=== PATIENT | male | born 1960 | race Two or more races ===

== ENCOUNTER 2017-06-01 18:29 | Emergency (ER) | payer MEDICAID ==
--- NOTE | 2017-06-01 18:42 | EDM.PDOC ---
ED HPI GENERAL MEDICAL PROBLEM - General Stated Complaint: FALL/HIT HEAD/COLLARBONE Time Seen by Provider: 06/01/17 18:36 - History of Present Illness INITIAL COMMENTS - FREE TEXT/NARRATIVE: HISTORY AND PHYSICAL: History of present illness: Patient is 57-year-old white male presents status post fall which injured his right clavicle/shoulder and struck his head he states he may have had brief loss of consciousness he denies neck pain denies chest or abdominal pain or trauma or other concern Review of systems: As per history of present illness and below otherwise all systems reviewed and negative. Past medical history: As per history of present illness and as reviewed below otherwise noncontributory. Surgical history: As per history of present illness and as reviewed below otherwise noncontributory. Social history: No reported history of drug or alcohol abuse. Family history: As per history of present illness and as reviewed below otherwise noncontributory. Physical exam: HEENT: Atraumatic, normocephalic, pupils reactive, negative for conjunctival pallor , mucous membranes moist, throat clear, neck supple, nontender, trachea midline. Lungs: Clear to auscultation, breath sounds equal bilaterally, chest nontender. Heart: S1S2, regular, negative for clicks, rubs, or JVD. Abdomen: Soft, nondistended, nontender. Negative for masses or hepatosplenomegaly. Negative for costovertebral tenderness. Pelvis: Stable nontender. Genitourinary: Deferred. Rectal: Deferred. Extremities: Tenderness to palpation of his right clavicle patient is guarding his clavicle somewhat and has limited range of motion of the shoulder secondary to pain vascular exams unremarkable Neuro: Awake, alert, oriented. Cranial nerves II through XII unremarkable. Cerebellum unremarkable. Motor and sensory unremarkable throughout. Exam nonfocal. Diagnostics: Tray right shoulder/collarbone CT brain Therapeutics: Sling right arm Impression: 1 observation status post fall #2 closed head injury #3 acute right shoulder/ clavicle injury Definitive disposition and diagnosis as appropriate pending reevaluation and review of above. - Related Data Allergies Allergy/AdvReac Type Severity Reaction Status Date / Time No Known Allergies Allergy Verified 04/25/15 10:53 Home Meds: Home Meds . [No Known Home Meds] 04/25/15 [History] Social & Family History - Tobacco Use Smoking Status *Q: Current Every Day Smoker Years of Tobacco use: 39 Packs/Tins Daily: 1 - Recreational Drug Use Recreational Drug Use: Yes Drug Use in Last 12 Months: No ED ROS GENERAL - Review of Systems Review Of Systems: ROS reveals no pertinent complaints other than HPI. ED EXAM, GENERAL - Physical Exam Exam: See Below (See dictation) Course - Orders/Labs/Meds Orders: Active Orders 24 hr Category Date Time Status Clavicle Rt [CR] Stat Exams 06/01/17 18:38 Ordered Head wo Cont [CT] Stat Exams 06/01/17 18:38 Ordered Shoulder Comp Rt [CR] Stat Exams 06/01/17 18:38 Ordered Departure - Departure Time of Disposition: 18:40 Disposition: Home, Self-Care 01 Condition: Good Clinical Impression: Head injury, Shoulder injury, Injury of right clavicle - Discharge Information Additional Instructions: The following information is given to patients seen in the emergency department who are being discharged to home. This information is to outline your options for follow-up care. We provide all patients seen in our emergency department with a follow-up referral. The need for follow-up, as well as the timing and circumstances, are variable depending upon the specifics of your emergency department visit. If you don't have a primary care physician on staff, we will provide you with a referral. We always advise you to contact your personal physician following an emergency department visit to inform them of the circumstance of the visit and for follow-up with them and/or the need for any referrals to a consulting specialist. The emergency department will also refer you to a specialist when appropriate. This referral assures that you have the opportunity for followup care with a specialist. All of these measure are taken in an effort to provide you with optimal care, which includes your followup. Under all circumstances we always encourage you to contact your private physician who remains a resource for coordinating your care. When calling for followup care, please make the office aware that this follow-up is from your recent emergency room visit. If for any reason you are refused follow-up, please contact the [facility] emergency department at and asked to speak to the emergency department charge nurse. [facility] Professional [address], [address] [place] [address] Sling as directed and follow-up right medical doctor/orthopedic clinic as discussed Tylenol as directed return as needed as discussed - My Orders Last 24 Hours: My Active Orders 06/01/17 18:38 Clavicle Rt [CR] Stat Head wo Cont [CT] Stat Shoulder Comp Rt [CR] Stat - Assessment/Plan Last 24 Hours: My Active Orders 06/01/17 18:38 Clavicle Rt [CR] Stat Head wo Cont [CT] Stat Shoulder Comp Rt [CR] Stat
[2017-06-01 18:44] VITALS: BP 105/79
[2017-06-01] MEDS ORDERED: Acetaminophen/HYDROcodone 325-5 MG Tab PO ONE (19:22)
--- NOTE | 2017-06-02 09:29 | CT ---
EXAM DATE: 06/01/17 PATIENT'S AGE: 57 Patient: ROBB JARRELL Facility: [place], [place] Site . Site : 1960 Study: CT Head [id number]/27/2017 6:59:22 PM Ordering Physician: Hortencia Lauren Final Report: INDICATION: Fall. LOC. TECHNIQUE: CT head without contrast. COMPARISON: None available FINDINGS: The ventricles and sulci demonstrate normal configuration and size for the patient`s age. There is no mass effect or midline shift. There is no loss of lemons-white differentiation. There is no evidence of an acute intracranial hemorrhage. There is a probable chronic left nasal bone deformity. Paranasal sinus mucosal thickening is noted, most pronounced in the left maxillary sinus. There is apparent minimal opacification of a few inferior right mastoid tip air cells. The visualized orbits are within normal limits. IMPRESSION: No evidence of an acute intracranial hemorrhage, mass effect or loss of lemons- white differentiation. Paranasal sinus disease. Dictated by Evan Martinez MD @ 06/01/2017 7:23:19 PM Dictated by: Evan Martinez MD @ 06/01/2017 19:23:34 (Electronic Signature) Report Signed by Proxy. STACI
--- NOTE | 2017-06-02 09:30 | CR ---
EXAM DATE: 06/01/17 PATIENT'S AGE: 57 Patient: ROBB JARRELL Facility: [place], [place] Site . Site : 1960 Study: XRay Shoulder Right clavicle [id number]/27/2017 7:09:03 PM Ordering Physician: Hortencia Lauren Final Report: INDICATION: Status post fall down stairs. TECHNIQUE: Clavicle radiographs 2 views COMPARISON: None FINDINGS: Displaced mid right clavicle fracture. With overlap of fracture fragments. Distal fracture fragment is displaced superiorly. Right lung apex clear. No pleural line indicate right apical pneumothorax. Mild degenerative changes of the AC joint with inferior spurring. IMPRESSION: 1. Oblique, displaced mid right clavicle fracture with significant overlap of fracture fragments. Dictated by Conrad Saravia MD @ 06/01/2017 7:30:57 PM Dictated by: Conrad Saravia MD @ 06/01/2017 19:31:01 (Electronic Signature) Report Signed by Proxy. STACI
--- NOTE | 2017-06-02 09:31 | CR ---
EXAM DATE: 06/01/17 PATIENT'S AGE: 57 Patient: ROBB JARRELL Facility: [place], [place] Site . Site : 1960 Study: XRay Shoulder Right [id number]/27/2017 7:09:24 PM Ordering Physician: Hortencia Lauren Final Report: INDICATION: Fall down stairs. TECHNIQUE: Shoulder radiographs 3 views COMPARISON: None FINDINGS: Oblique, displaced mid right clavicle fracture with overlap of fracture fragments. Right AC joint alignment preserved. No glenohumeral joint dislocation. Displaced lateral 5th and 6th rib fractures. No definite pneumothorax identified. IMPRESSION: 1. Displaced mid right clavicle fracture with overlap of fracture fragments. 2. Displaced lateral right 5th and 6th rib fractures. Dictated by Conrad Saravia MD @ 06/01/2017 7:34:54 PM Dictated by: Conrad Saravia MD @ 06/01/2017 19:34:58 (Electronic Signature) Report Signed by Proxy. STACI
== END 2017-06-01 20:11 | disposition home or self-care (01) ==
LOC: MW.ED 18:29
DX: S22.41XA Multiple fractures of ribs, right side, initial encounter for closed fracture (principal); S42.021A Displaced fracture of shaft of right clavicle, initial encounter for closed fracture; F17.210 Nicotine dependence, cigarettes, uncomplicated; W10.9XXA Fall (on) (from) unspecified stairs and steps, initial encounter
CPT/HCPCS: 70450; 73000; 73030; 99284; A4566; A9270; 99282

== ENCOUNTER 2017-07-02 18:04 | Emergency (ER) | payer MEDICAID ==
[2017-07-02] MEDS ORDERED: Nitroglycerin 0.4 MG Tab.SL SL PRN (18:12)
[2017-07-02] MEDS ORDERED: Aspirin 81 MG Tab.Chew PO ONE (18:12)
--- NOTE | 2017-07-02 18:23 | EDM.PDOC ---
ED HPI GENERAL MEDICAL PROBLEM - General Chief Complaint: Chest Pain Stated Complaint: CHEST PAIN Time Seen by Provider: 07/02/17 18:11 Source of Information: Reports: Patient History Limitations: Reports: No Limitations - History of Present Illness INITIAL COMMENTS - FREE TEXT/NARRATIVE: HISTORY AND PHYSICAL: History of present illness: Patient is a 57-year-old male who resents to the emergency room with midsternal chest pain. Patient he woke up with midsternal chest pain that lasted several hours. She did take a nap this afternoon and the pain had gone away. Tonight around 5:00 the chest pain had returned. History of hypertension. He states he has never been placed on antihypertensive as he has been told that he "just needs to quit smoking". Recently quit smoking approximately one week ago. Review of systems: As per history of present illness and below otherwise all systems reviewed and negative. Past medical history: As per history of present illness and as reviewed below otherwise noncontributory. Surgical history: As per history of present illness and as reviewed below otherwise noncontributory. Social history: No reported history of drug or alcohol abuse. Family history: As per history of present illness and as reviewed below otherwise noncontributory. Physical exam: General: Nontoxic appearing 57-year-old male. Alert and oriented. Nontoxic appearing and in no acute distress. HEENT: Atraumatic, normocephalic, pupils reactive, negative for conjunctival pallor or scleral icterus, mucous membranes moist, throat clear, neck supple, nontender, trachea midline. Lungs: Clear to auscultation, breath sounds equal bilaterally, chest nontender. Heart: S1S2, regular, negative for clicks, rubs, or JVD. Abdomen: Soft, nondistended, nontender. Negative for masses or hepatosplenomegaly. Negative for costovertebral tenderness. Pelvis: Stable nontender. Genitourinary: Deferred. Rectal: Deferred. Extremities: Atraumatic, negative for cords or calf pain. Neurovascular unremarkable. Neuro: Awake, alert, oriented. Cranial nerves II through XII unremarkable. Cerebellum unremarkable. Motor and sensory unremarkable throughout. Exam nonfocal. Patient states that he used to drink a 6 pack per day of beer. Reports his last alcoholic drink was on June 05, 2017. Recently quit smoking. Has been using the NicoDerm CQ topical patch for the last week. Does have a prescription for Chantix, but has not started this medication yet. Has been seeing BOB Arboleda at the Orthopedic clinic for a clavicle and rib fracture in 05/2017. Is taking Quinton for pain management. Patient is pain free. Lab results are within normal limits. EKG shows no significant findings. Chest x-ray shows no acute findings, does visualize the right midshaft clavicular fracture from previous. I did offer the patient admission for observation status. He states he feels comfortable going home, declines admission. Believes his pain is related to not having his Quinton yet today. Risks were discussed. Patient voices understanding. He reports he will call an ambulance if symptoms worsen or new symptoms arise. Diagnostics: CBC, CMP, troponin, EKG, chest x-ray Therapeutics: Nitroglycerin, aspirin Impression: #1 Chest pain Plan: 1. Please start a baby aspirin daily. 2. Follow-up with Dr. Brunson next week for further evaluation. Would like you evaluated for your high blood pressure reading. 3. Declined admission today. As we discussed, if you have returning chest pain or worsening/new symptoms - call ambulance and return to the ED Definitive disposition and diagnosis as appropriate pending reevaluation and review of above. Onset: Today Duration: Day(s): chest pain Pain Score (Numeric/FACES): 2 - Related Data Allergies Allergy/AdvReac Type Severity Reaction Status Date / Time No Known Allergies Allergy Verified 07/02/17 18:21 Home Meds: Home Meds Hydrocodone/Acetaminophen [Hydrocodon-Acetaminophen 5-325] 1 each PO ASDIRECTED PRN 07/02/17 [History] Past Medical History - Past Surgical History Musculoskeletal Surgical History: Reports: Other (See Below) Other Musculoskeletal Surgeries/Procedures:: left wrist surgeries Social & Family History - Family History Family Medical History: Noncontributory - Tobacco Use Smoking Status *Q: Current Every Day Smoker Years of Tobacco use: 45 Packs/Tins Daily: 1 - Alcohol Use Days Per Week of Alcohol Use: 7 Number of Drinks Per Day: 2 Total Drinks Per Week: 14 - Recreational Drug Use Recreational Drug Use: No Drug Use in Last 12 Months: No ED ROS GENERAL - Review of Systems Review Of Systems: ROS reveals no pertinent complaints other than HPI. ED EXAM, GENERAL - Physical Exam Exam: See Below (See dictation) Course - Vital Signs Last Recorded V/S: Last Vital Signs Temp 99.4 F 07/02/17 18:22 Pulse 84 07/02/17 19:28 Resp 14 07/02/17 19:28 BP 130/90 07/02/17 19:28 Pulse Ox 96 07/02/17 19:28 - Orders/Labs/Meds Orders: Active Orders 24 hr Category Date Time Status EKG Documentation Completion [RC] STAT Care 07/02/17 18:12 Active Chest 1V Frontal [CR] Stat Exams 07/02/17 18:12 Taken Nitroglycerin [Nitrostat] Med 07/02/17 18:12 Active 0.4 mg SL Q5M PRN Medication Orders Nitroglycerin (Nitrostat) 0.4 mg SL Q5M PRN PRN Reason: Chest Pain Last Admin: 07/02/17 18:42 Dose: 0.4 mg Labs: Laboratory Tests 07/02/17 07/02/17 07/02/17 Range/Units 18:27 18:27 18:44 WBC 7.26 (4.0-11.0) K/uL RBC 4.57 (4.50-5.90) M/uL Hgb 16.0 (13.0-17.0) g/dL Hct 45.1 (38.0-50.0) % MCV 98.7 H (80.0-98.0) fL MCH 35.0 H (27.0-32.0) pg MCHC 35.5 (31.0-37.0) g/dL RDW Std Deviation 43.5 (28.0-62.0) fl RDW Coeff of Shikha 12 (11.0-15.0) % Plt Count 172 (150-400) K/uL MPV 10.20 (7.40-12.00) fL Neut % (Auto) 60.6 (48.0-80.0) % Lymph % (Auto) 26.7 (16.0-40.0) % [place] % (Auto) 11.7 (0.0-15.0) % Eos % (Auto) 0.7 (0.0-7.0) % Baso % (Auto) 0.3 (0.0-1.5) % Neut # (Auto) 4.4 (1.4-5.7) K/uL Lymph # (Auto) 1.9 (0.6-2.4) K/uL [place] # (Auto) 0.9 H (0.0-0.8) K/uL Eos # (Auto) 0.1 (0.0-0.7) K/uL Baso # (Auto) 0.0 (0.0-0.1) K/uL Nucleated RBC % 0.0 /100WBC Nucleated RBCs # 0 K/uL Sodium 140 (136-146) mmol/L Potassium 4.1 (3.5-5.1) mmol/L Chloride 109 (98-110) mmol/L Carbon Dioxide 22 (21-31) mmol/L BUN 8 (6.0-23.0) mg/dL Creatinine 0.9 (0.6-1.5) mg/dL Est Cr Clr Drug Dosing 86.56 mL/min Estimated GFR (MDRD) > 60.0 ml/min Glucose 100 (60-110) mg/dL Calcium 9.2 (8.8-10.8) mg/dL Total Bilirubin 0.8 (0.1-1.5) mg/dL AST 67 H (5-40) IU/L ALT 89 H (8-54) IU/L Alkaline Phosphatase 93 (40-150) Troponin I < 0.10 (0.0-0.29) NG/ML Total Protein 7.5 (6.0-8.0) g/dL Albumin 4.0 (3.5-5.0) g/dL Globulin 3.5 (2.0-3.5) g/dL Albumin/Globulin Ratio 1.1 L (1.3-2.8) Urine Color YELLOW Urine Appearance CLEAR Urine pH 7.0 (5.0-8.0) Ur Specific [place] <= 1.005 (1.001-1.035) Urine Protein NEGATIVE (NEGATIVE) mg/dL Urine Glucose (UA) NEGATIVE (NEGATIVE) mg/dL Urine Ketones NEGATIVE (NEGATIVE) mg/dL Urine Occult Blood NEGATIVE (NEGATIVE) Urine Nitrite NEGATIVE (NEGATIVE) Urine Bilirubin NEGATIVE (NEGATIVE) Urine Urobilinogen 0.2 (<2.0) EU/dL Ur Leukocyte Esterase NEGATIVE (NEGATIVE) Urine RBC 0-1 (0-2/HPF) Urine WBC 0-1 (0-5/HPF) Ur Epithelial Cells RARE (NONE-FEW) Urine Bacteria RARE (NEGATIVE) Urine Mucus RARE (NONE-MOD) Meds: Medications Generic Name Dose Route Start Last Admin Trade Name Freq PRN Reason Stop Dose Admin Nitroglycerin 0.4 mg 07/02/17 18:12 07/02/17 18:42 Nitrostat SL 0.4 mg Q5M PRN Administration Chest Pain Discontinued Medications Generic Name Dose Route Start Last Admin Trade Name Freq PRN Reason Stop Dose Admin Aspirin 324 mg 07/02/17 18:12 07/02/17 18:41 Aspirin PO 07/02/17 18:13 324 mg ONETIME ONE Administration Departure - Departure Time of Disposition: 19:49 Disposition: Home, Self-Care 01 Clinical Impression: Chest pain Qualifiers: Chest pain type: unspecified Qualified Code(s): R07.9 - Chest pain, unspecified Forms: ED Department Discharge Additional Instructions: My general discharge The following information is given to patients seen in the emergency department who are being discharged to home. This information is to outline your options for follow-up care. We provide all patients seen in our emergency department with a follow-up referral. The need for follow-up, as well as the timing and circumstances, are variable depending upon the specifics of your emergency department visit. If you don't have a primary care physician on staff, we will provide you with a referral. We always advise you to contact your personal physician following an emergency department visit to inform them of the circumstance of the visit and for follow-up with them and/or the need for any referrals to a consulting specialist. The emergency department will also refer you to a specialist when appropriate. This referral assures that you have the opportunity for follow-up care with a specialist. All of these measure are taken in an effort to provide you with optimal care, which includes your follow-up. Under all circumstances we always encourage you to contact your private physician who remains a resource for coordinating your care. When calling for follow-up care, please make the office aware that this follow-up is from your recent emergency room visit. If for any reason you are refused follow-up, please contact the [facility] Emergency Department at and asked to speak to the emergency department charge nurse. [facility] [address] [place] [id number] 1. Please start a baby aspirin daily (This is heart protective). Stop smoking. 2. Follow-up with Dr. Brunson next week for further evaluation. Would like you evaluated for your high blood pressure reading. 3. Declined admission today. As we discussed, if you have returning chest pain or worsening/new symptoms - call ambulance and return to the ED - My Orders Last 24 Hours: My Active Orders 07/02/17 18:12 EKG Documentation Completion [RC] STAT Chest 1V Frontal [CR] Stat Nitroglycerin [Nitrostat] 0.4 mg SL Q5M PRN - Assessment/Plan Last 24 Hours: My Active Orders 07/02/17 18:12 EKG Documentation Completion [RC] STAT Chest 1V Frontal [CR] Stat Nitroglycerin [Nitrostat] 0.4 mg SL Q5M PRN
[2017-07-02 19:19] LABS: CHLORIDE,CL 109 mmol/L (98-110); SODIUM,NA 140 mmol/L (136-146)
[2017-07-02 20:11] VITALS: BP 131/96
--- NOTE | 2017-07-04 15:34 | CR ---
EXAM DATE: 07/02/17 PATIENT'S AGE: 57 Patient: ROBB JARRELL Facility: [place], [place] Site . Site : 1960 Study: XRay Chest [id number]/27/2018 6:53:19 PM Ordering Physician: Doctor Aldrich Final Report: INDICATIONS: Chest pain starting earlier today. Broke right clavicle and ribs on 06/27/2017. TECHNIQUE: Chest 1 portable view. COMPARISON: Right clavicle same day. FINDINGS: No pneumothorax, pleural effusion or airspace consolidation. Cardiac and mediastinal contours are within normal limits. Upper abdomen as imaged is unremarkable. Right midshaft clavicle fracture. Irregularity of right ribs, likely involving ribs 3 through 6, however, this is suboptimally visualized. IMPRESSION: No evidence of acute cardiopulmonary disease. Right clavicle fracture and multiple right rib fractures, likely involving ribs 3 through 6. However, please note that the rib fractures are suboptimally evaluated. Dictated by Anastacio Sebastian MD @ 07/02/2017 7:18:41 PM Dictated by: Anastacio Sebastian MD @ 07/02/2017 19:18:56 (Electronic Signature) Report Signed by Proxy. [facility]ITAL[facility]riel
== END 2017-07-02 20:10 | disposition home or self-care (01) ==
LOC: MW.ED 18:04
DX: R07.9 Chest pain, unspecified (principal); F17.210 Nicotine dependence, cigarettes, uncomplicated
CPT/HCPCS: 36415; 71045; 80053; 81001; 84484; 85025; 93005; 99285; A9270

== ENCOUNTER 2019-11-20 06:07 | Emergency (ER) | payer SELFPAY ==
[2019-11-20 06:29] VITALS: BP 140/91; PULSE 87
--- NOTE | 2019-11-20 06:40 | EDM.PDOC ---
ED HPI GENERAL MEDICAL PROBLEM - General Chief Complaint: Bite:Animal, Insect Stated Complaint: PT SPOKE TO NURSE Time Seen by Provider: 11/20/19 06:34 Source of Information: Reports: Patient History Limitations: Reports: No Limitations - History of Present Illness INITIAL COMMENTS - FREE TEXT/NARRATIVE: HISTORY AND PHYSICAL: History of present illness: This is a 59-year-old gentleman with a history significant for hepatitis C who comes to the ER today secondary to irritation and bumps noted in the webspace between his second and third digits of his right hand. Patient reports that he was concerned that this might be a bite. Patient reports that today 1 of his housemates woke up and found a bat in his room. Patient reports that he was asleep when this happened and that the bat was not in the same bedroom that he was in. Patient presents the ER today for evaluation to make sure that he does not have a bat bite to his hand at the site of irritation. Patient reports that he had that irritation for approximately 2 to 3 days now. 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 Patient present the area is itching and irritated. Patient denies any other symptomatology. Patient has any recent fevers, shakes, chills, nausea, vomiting, diarrhea, dysuria, frequency, urgency, chest pain, shortness of breath. Patient's past medical history significant hepatitis C. Patient has no known drug allergies. 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 Review of systems: As per history of present illness and below otherwise all systems reviewed and negative. Past medical history: As per history of present illness and as reviewed below otherwise noncontributory. Surgical history: As per history of present illness and as reviewed below otherwise noncontributory. Social history: No reported history of drug or alcohol abuse. Family history: As per history of present illness and as reviewed below otherwise noncontributory. Physical exam: Constitutional: Patient is oriented to person, place, and time. Appears well- developed and well-nourished. No distress. HEENT: Moist mucous membranes Head: Normocephalic and atraumatic Eyes: Right eye exhibits no discharge. Left eye exhibits no discharge. No scleral icterus Neck: Normal range of motion. No tracheal deviation present. Cardiovascular: Normal rate and regular rhythm. Pulmonary: Effort normal, no respiratory distress. Abdominal: No distention Musculoskeletal: Normal range of motion Neurologic: Alert and oriented to person, place and time. Skin: [place], warm and dry. Psychiatric: Normal mood and affect. Behavior is normal. Judgment and thought content normal. Nursing note and vital signs have been reviewed Patient's ER physical exam is significant for 3 small papular areas in the webspace tween his second and third digit that appear to be consistent with a focal contact dermatitis. Impression: Plan Patient's presentation appears to be consistent with contact dermatitis. I have recommended that the patient get [id number] hydrocortisone cream and apply it twice a day. Patient reports that the rash is been there for approximately 3 days now and the irritation has almost completely resolved. I have had an in length conversation with the patient regarding recommendations of rabies prophylaxis if a bat is found within his home when he wakes up. I have recommended that the patient go ahead and get rabies prophylaxis however the patient at this time is declining prophylaxis with rabies immunoglobulin and vaccine. Patient reports that his door to his bedroom is always closed and his window has a screen and does not believe that there was a bat in his room while he was sleeping. I have recommended to the patient still that rabies vaccination would still be indicated per CDC recommendations and he is declining. Patient said that he will think about it and if he changes his mind he will return to the ER. Reassessment at the time of disposition demonstrates that the patient is in no acute distress. The patient has remained stable throughout the entire ED visit and is without objective evidence for acute process requiring urgent intervention or hospitalization. The patient is stable for discharge, counseling is provided as documented above, discussed symptomatic treatment and specific conditions for return. I have spoken with the patient/caregive and discussed todays findings, in addition to providing specific details for the plan of care. Questions are answered and there is agreement with the plan. - Related Data Allergies Allergy/AdvReac Type Severity Reaction Status Date / Time No Known Allergies Allergy Verified 11/20/19 06:32 Home Meds: Home Meds Non-Formulary Medication [NF Drug] 11/20/19 [History] Spironolactone [Aldactone] 1 tab PO DAILY 11/20/19 [History] Past Medical History Cardiovascular History: Reports: Hypertension - Past Surgical History Musculoskeletal Surgical History: Reports: Other (See Below) Other Musculoskeletal Surgeries/Procedures:: left wrist surgeries Social & Family History - Family History Family Medical History: Noncontributory - Caffeine Use Caffeine Use: Reports: Coffee ED ROS GENERAL - Review of Systems Review Of Systems: Comprehensive ROS is negative, except as noted in HPI. ED EXAM, ANIMAL BITE - Physical Exam Exam: See Below Exam Limited By: No Limitations Course - Vital Signs Last Recorded V/S: Last Vital Signs Temp 97.7 F 11/20/19 06:25 Pulse 87 11/20/19 06:25 Resp 18 11/20/19 06:25 BP 140/91 H 11/20/19 06:25 Pulse Ox 99 11/20/19 06:25 Departure - Departure Time of Disposition: 06:40 Disposition: Home, Self-Care 01 Condition: Good Clinical Impression: Contact dermatitis, Exposure to bat without known bite - Discharge Information *PRESCRIPTION DRUG MONITORING PROGRAM REVIEWED*: Not Applicable *COPY OF PRESCRIPTION DRUG MONITORING REPORT IN PATIENT JF: Not Applicable Instructions: Contact Dermatitis, [id number], Rabies Referrals: Brook Brunson MD [Primary Care Provider] - Additional Instructions: You were seen in the ER today secondary to the rash between your fingers. The rash between your fingers appears to be highly consistent with a contact dermatitis which likely is from environmental contact. You can utilize hydrocortisone cream which is [id number] 2-3 times a day to the area to help with symptoms. As we discussed, whenever there is a exposure to bat, the CDC recommends rabies prophylaxis. Although it is unlikely that you have contracted rabies it is still a possibility. If you change your mind about wanting rabies vaccine and prophylaxis please return to the ED. The following information is given to patients seen in the emergency department who are being discharged to home. This information is to outline your options for follow-up care. We provide all patients seen in our emergency department with a follow-up referral. The need for follow-up, as well as the timing and circumstances, are variable depending upon the specifics of your emergency department visit. If you don't have a primary care physician on staff, we will provide you with a referral. We always advise you to contact your personal physician following an emergency department visit to inform them of the circumstance of the visit and for follow-up with them and/or the need for any referrals to a consulting specialist. The emergency department will also refer you to a specialist when appropriate. This referral assures that you have the opportunity for follow-up care with a specialist. All of these measure are taken in an effort to provide you with optimal care, which includes your follow-up. Under all circumstances we always encourage you to contact your private physician who remains a resource for coordinating your care. When calling for follow-up care, please make the office aware that this follow-up is from your recent emergency room visit. If for any reason you are refused follow-up, please contact the [facility] Emergency Department at and asked to speak to the emergency department charge nurse. Sepsis Event Note (ED) - Evaluation Sepsis Screening Result: No Definite Risk - Focused Exam Vital Signs: Vital Signs Temp Pulse Resp BP Pulse Ox 11/20/19 06:25 97.7 F 87 18 140/91 H 99
== END 2019-11-20 07:01 | disposition home or self-care (01) ==
LOC: MW.ED 06:07
DX: L25.9 Unspecified contact dermatitis, unspecified cause (principal); I10 Essential (primary) hypertension; Z79.899 Other long term (current) drug therapy
CPT/HCPCS: 99282

== ENCOUNTER 2021-07-21 04:00 | Emergency (ER) | payer MEDICAID, OTHER ==
[2021-07-21] MEDS ORDERED: Sodium Chloride 0.9% 10 ML Syringe FLUSH PRN (04:31)
[2021-07-21] MEDS ORDERED: fentaNYL 50 MCG/ML SDV IVPUSH ONE (04:31)
[2021-07-21] MEDS ORDERED: Ondansetron 4 MG/2 ML SDV IVPUSH ONE (04:31)
[2021-07-21] MEDS ORDERED: Sodium Chloride 0.9% 2.5 ML Syringe FLUSH PRN (04:31)
[2021-07-21] MEDS ORDERED: Sodium Chloride 0.9% 1,000 ML IV ONE (04:31)
[2021-07-21 05:20] LABS: BLOOD UREA NITROGEN,BUN 11 mg/dL (7.0-18.0); CARBON DIOXIDE,CO2 24.1 mmol/L (21.0-32.0); CHLORIDE,CL 103 mmol/L (98-107); GLUCOSE RANDOM 118 mg/dL (74-106); POTASSIUM,K 3.7 mmol/L (3.5-5.1); SODIUM,NA 138 mmol/L (136-148)
[2021-07-21] MEDS ORDERED: Iopamidol 755 MG/ML 500 ML Multipack Bottle IVPUSH STA (05:47)
[2021-07-21 07:42] VITALS: BP 140/91; PULSE 77
== END 2021-07-21 07:28 | disposition home or self-care (01) ==
LOC: MW.ED 04:00
DX: K42.9 Umbilical hernia without obstruction or gangrene (principal); I10 Essential (primary) hypertension; Z72.0 Tobacco use
CPT/HCPCS: 36415; 74177; 74177-26; 80053; 81003; 85025; 96374; 96375; 99284-25; J2405; J3010; J7030; Q9967

== ENCOUNTER 2022-01-15 16:02 | Inpatient (IN) | payer OTHER ==
[2022-01-15] MEDS ORDERED: Sodium Chloride 0.9% 1,000 ML IV ONE ×2 (16:23→16:27)
[2022-01-15] MEDS ORDERED: Sodium Chloride 0.9% 2.5 ML Syringe FLUSH PRN (16:23)
[2022-01-15] MEDS ORDERED: Sodium Chloride 0.9% 10 ML Syringe FLUSH PRN (16:23)
[2022-01-15] MEDS ORDERED: Ibuprofen 600 MG Tab PO ONE ×2 (16:27)
[2022-01-15] MEDS ORDERED: Loperamide 2 MG Cap PO STA (16:28)
[2022-01-15 16:47] LABS: BLOOD UREA NITROGEN,BUN 30 mg/dL (7.0-18.0); CARBON DIOXIDE,CO2 17.2 mmol/L (21.0-32.0); CHLORIDE,CL 98 mmol/L (98-107); ESTIMATED GFR 37 mL/min (>60); GLUCOSE RANDOM 162 mg/dL (74-106); POTASSIUM,K 3.6 mmol/L (3.5-5.1); SODIUM,NA 129 mmol/L (136-148)
[2022-01-15] MEDS ORDERED: Piperacillin/Tazobactam 4.5 GM in Sodium Chloride 0.9% 100 ML IV ONE ×2 (19:44→19:49)
[2022-01-15] MEDS ORDERED: Lactated Ringers 1,000 ML IV STA (20:53)
[2022-01-15 20:58] LABS: CARBON DIOXIDE,CO2 20.4 mmol/L (21.0-32.0); POTASSIUM,K 3.6 mmol/L (3.5-5.1)
[2022-01-16] MEDS ORDERED: Ondansetron 4 MG/2 ML SDV IVPUSH PRN (01:42)
[2022-01-16] MEDS: Piperacillin/Tazobactam 3.375 GM in Sodium Chloride 0.9% 50 ML IV SCH ×4 (02:54→21:11)
[2022-01-16] MEDS: Heparin Sodium 5,000 Units/ML Vial SUBCUT SCH ×3 (06:17→21:11)
[2022-01-16] MEDS: Sodium Chloride 0.9% 1,000 ML IV SCH ×3 (06:23→17:28)
[2022-01-16 07:19] LABS: CARBON DIOXIDE,CO2 20.4 mmol/L (21.0-32.0); POTASSIUM,K 3.5 mmol/L (3.5-5.1)
[2022-01-16] MEDS ORDERED: Sodium Chloride 0.9% 1,000 ML IV ONE (09:31)
[2022-01-16] MEDS: Acetaminophen 325 MG Tab PO PRN ×2 (13:33→21:12)
[2022-01-17] MEDS: Sodium Chloride 0.9% 1,000 ML IV SCH ×4 (00:35→23:38)
[2022-01-17] MEDS: Piperacillin/Tazobactam 3.375 GM in Sodium Chloride 0.9% 50 ML IV SCH ×4 (01:20→20:50)
[2022-01-17] MEDS: Heparin Sodium 5,000 Units/ML Vial SUBCUT SCH ×3 (05:12→20:59)
[2022-01-17 06:38] LABS: CARBON DIOXIDE,CO2 20.8 mmol/L (21.0-32.0); POTASSIUM,K 4.1 mmol/L (3.5-5.1)
[2022-01-17] MEDS: Melatonin 3 MG Tab PO PRN (23:12)
[2022-01-18] MEDS: Piperacillin/Tazobactam 3.375 GM in Sodium Chloride 0.9% 50 ML IV SCH ×4 (02:08→21:22)
[2022-01-18] MEDS: Heparin Sodium 5,000 Units/ML Vial SUBCUT SCH ×3 (06:14→21:22)
[2022-01-18 07:03] LABS: CARBON DIOXIDE,CO2 17.2 mmol/L (21.0-32.0)
[2022-01-18] MEDS: Sodium Chloride 0.9% 1,000 ML IV SCH (07:39)
[2022-01-18] MEDS: Acetaminophen 325 MG Tab PO PRN ×2 (07:49→21:22)
[2022-01-19] MEDS: Melatonin 3 MG Tab PO PRN (01:14)
[2022-01-19] MEDS: Piperacillin/Tazobactam 3.375 GM in Sodium Chloride 0.9% 50 ML IV SCH ×2 (01:14→08:06)
[2022-01-19] MEDS: Heparin Sodium 5,000 Units/ML Vial SUBCUT SCH (06:06)
[2022-01-19 07:29] LABS: CARBON DIOXIDE,CO2 19.4 mmol/L (21.0-32.0); POTASSIUM,K 3.7 mmol/L (3.5-5.1)
[2022-01-19] MEDS ORDERED: Levofloxacin 750 MG Tab PO SCH (10:45)
[2022-01-19 12:34] VITALS: BP 120/75; PULSE 66
== END 2022-01-19 16:25 | disposition home or self-care (01) | DRG 872 ==
LOC: MW.ED 16:02 → MW.MS 23:54
PROVIDERS: ADMIT Internal Medicine; ATTEND Internal Medicine
DX: A41.51 Sepsis due to Escherichia coli [E. coli] (principal); N17.9 Acute kidney failure, unspecified; E87.2 Acidosis; N12 Tubulo-interstitial nephritis, not specified as acute or chronic; N30.00 Acute cystitis without hematuria; R65.20 Severe sepsis without septic shock; K42.9 Umbilical hernia without obstruction or gangrene; B18.2 Chronic viral hepatitis C; I10 Essential (primary) hypertension; F31.9 Bipolar disorder, unspecified; Z90.49 Acquired absence of other specified parts of digestive tract; F43.10 Post-traumatic stress disorder, unspecified; F17.200 Nicotine dependence, unspecified, uncomplicated; Z20.822 Contact with and (suspected) exposure to COVID-19; Z79.899 Other long term (current) drug therapy
CPT/HCPCS: 36415; 80048; 80053; 80305-QW; 80307; 81001; 82550; 83605; 83735; 85025; 85610; 87040; 87077; 87086; 87088; 87186; 96361; 96365; 99221; 99231; 99233; 99238; 99284; 99284-25; A9270-GY; J1644; J2543; J7030; J7120; U0002

== ENCOUNTER 2023-12-12 21:09 | Emergency (ER) | payer BC ==
[2023-12-12 21:47] LABS: APPEARANCE,URINE CLEAR; BILIRUBIN,URINE NEGATIVE (NEGATIVE); COLOR,URINE YELLOW; GLUCOSE,URINE NEGATIVE (NEGATIVE); KETONES,URINE NEGATIVE (NEGATIVE); LEUKOCYTE ESTERASE,URINE NEGATIVE (NEGATIVE); NITRITE,URINE NEGATIVE (NEGATIVE); OCCULT BLOOD,URINE NEGATIVE (NEGATIVE); PROTEIN,URINE NEGATIVE (NEGATIVE); UROBILINOGEN,URINE 0.2 EU/dL (<2.0)
[2023-12-12] MEDS: Sodium Chloride 0.9% 1,000 ML IV ONE (21:55)
[2023-12-12] MEDS: Acetaminophen 500 MG Tab PO ONE (21:56)
[2023-12-12] MEDS: Sodium Chloride 0.9% 2.5 ML Syringe FLUSH PRN (21:57)
[2023-12-12] MEDS: Sodium Chloride 0.9% 10 ML Syringe FLUSH PRN (21:57)
[2023-12-12 22:01] LABS: BASOPHILS ABSOLUTE AUTO 0.04 K/uL (0.00-0.20); BASOPHILS PERCENT AUTO 0.6 % (0.0-1.0); EOSINOPHILS ABSOLUTE AUTO 0.05 K/uL (0.00-0.45); EOSINOPHILS PERCENT AUTO 0.7 % (0.0-6.0); HEMATOCRIT 43.7 % (42.0-52.0); HEMOGLOBIN 15.6 g/dL (14.0-18.0); IMMATURE GRAN ABSOLUTE AUTO 0.04 K/uL (0.00-0.05); IMMATURE GRAN PERCENT AUTO 0.6 % (0.0-0.4); LYMPHOCYTES ABSOLUTE AUTO 1.63 K/uL (1.00-4.80); LYMPHOCYTES PERCENT AUTO 23.8 % (24.0-44.0); MEAN CORPUSCULAR HEMOGLOBIN 34.8 pg (28.0-32.0); MEAN CORPUSCULAR HGB CONC 35.7 g/dL (32.0-36.0); MEAN CORPUSCULAR VOLUME 97.5 fL (83.0-99.0); MEAN PLATELET VOLUME 10.7 fL (9.4-12.4); MONOCYTES ABSOLUTE AUTO 0.88 K/uL (0.00-0.80); MONOCYTES PERCENT AUTO 12.8 % (0.0-8.0); NEUTROPHILS ABSOLUTE AUTO 4.21 K/uL (1.80-7.70); NEUTROPHILS PERCENT AUTO 61.5 % (41.0-71.0); PLATELET COUNT,PLT 99 K/uL (150-400); RED BLOOD CELL COUNT 4.48 M/uL (4.52-5.90); WHITE BLOOD CELL COUNT,WBC 6.85 K/uL (3.9-11.3)
[2023-12-12 22:22] LABS: A/G RATIO 0.7 (0.9-1.6); ALBUMIN 3.3 g/dL (3.4-5.0); BILIRUBIN TOTAL 0.8 mg/dL (0.2-1.0); CALCIUM 8.9 mg/dL (8.5-10.1); CARBON DIOXIDE,CO2 23.4 mmol/L (21.0-32.0); CREATININE 1.1 mg/dL (0.8-1.3); EST CRCL DRUG DOSING (CG) 65.64 mL/min; POTASSIUM,K 4.9 mmol/L (3.5-5.1); PROTEIN TOTAL,TP 7.8 g/dL (6.4-8.2)
[2023-12-12 22:27] LABS: BACTERIA,URINE RARE (NEGATIVE); EPITHELIAL CELLS,URINE FEW (NONE-FEW); MUCUS,URINE LIGHT (NONE-MOD); RBC,URINE 0-1 (0-2/HPF); WBC,URINE 0-1 (0-5/HPF)
[2023-12-12 22:55] LABS: LACTIC ACID 1.4 mmol/L (0.4-2.0)
[2023-12-12 22:59] LABS: CORONAVIRUS COVID-19 NAA POSITIVE (NEGATIVE); INFLUENZA A NAA NEGATIVE (NEGATIVE); INFLUENZA B NAA NEGATIVE (NEGATIVE); RESPIRATORY SYNCYTIAL VIR NAA NEGATIVE (NEGATIVE)
[2023-12-12 23:57] VITALS: BP 93/64; PULSE 82
== END 2023-12-13 00:01 | disposition home or self-care (01) ==
LOC: MW.ED 21:09
DX: U07.1 COVID-19 (principal); I10 Essential (primary) hypertension; F17.210 Nicotine dependence, cigarettes, uncomplicated; Z79.899 Other long term (current) drug therapy
CPT/HCPCS: 0241U; 36415; 80053; 81001; 83605; 83690; 85025; 87040; 87086; 87651; 96360; 99283; A9270; J3490; J7030